=== PATIENT | female | born 1980 | race Caucasian/White ===

== ENCOUNTER 2016-08-06 08:35 | Emergency (ER) | payer SELFPAY ==
[~2016-08-06] VITALS: Ht 157.5 cm; Wt 50.0 kg
[2016-08-06 08:39] VITALS: Ht 157.5 cm; Wt 50.0 kg
[2016-08-06] MEDS ORDERED: KETOROLAC 30 MG INJ IM STA (09:20)
[2016-08-06] MEDS ORDERED: ONDANSETRON (ODT) 4 MG TAB ODT STA (09:20)
[2016-08-06 09:52] LABS: ADD SCAN DIFF NO
[2016-08-06 10:00] LABS: ADD UMIC YES; URINE BILIRUBIN (Dip) NEGATIVE (NEGATIVE); URINE BLOOD (Dip) 1+ (NEGATIVE); URINE COLOR LT. YELLOW (YELLOW); URINE GLUCOSE (Dip) >=1000 % (NEGATIVE); URINE KETONES (Dip) NEGATIVE (NEGATIVE); URINE LEUKOCYTE ESTERASE (Dip) NEGATIVE (NEGATIVE); URINE NITRITE (Dip) NEGATIVE (NEGATIVE); URINE TOTAL PROTEIN (Dip) NEGATIVE (NEGATIVE); URINE UROBILINOGEN (Dip) 0.2 E.U./dL (0.1-1.0)
[2016-08-06 10:09] LABS: BASOPHILS % 0.3 % (0.0-2.0); EOSINOPHILS # 0.1 10^3/ul (0.0-0.5); EOSINOPHILS % 1.7 % (0.0-7.0); HEMATOCRIT 37.4 % (37.0-47.0); HEMOGLOBIN 11.2 g/dl (12.0-16.0); LYMPHOCYTES # 2.6 10^3/ul (0.8-2.9); LYMPHOCYTES % 39.7 % (15.0-51.0); MEAN CORPUSCULAR HEMOGLOBIN 20.8 pg (29.0-33.0); MEAN CORPUSCULAR HGB CONC 29.9 g/dl (32.0-37.0); MEAN CORPUSCULAR VOLUME 69.5 fl (82.0-101.0); MEAN PLATELET VOLUME 10.4 fl (7.4-10.4); MONOCYTE # 0.5 10^3/ul (0.3-0.9); MONOCYTES % 7.7 % (0.0-11.0); NEUTROPHIL # 3.3 10^3/ul (1.6-7.5); NEUTROPHILS % 50.3 % (39.0-77.0); PLATELET COUNT 512 10^3/UL (140-415); RED BLOOD COUNT 5.38 10^6/ul (4.20-5.40); RED CELL DISTRIBUTION WIDTH 17.2 % (11.5-14.5); WHITE BLOOD COUNT 6.5 10^3/ul (4.8-10.8)
[2016-08-06 10:12] LABS: ALBUMIN 4.9 g/dl (3.3-4.9)
[2016-08-06 10:13] LABS: BACTERIA,URINE FEW; POTASSIUM 3.7 mmol/L (3.5-5.1)
[2016-08-06 10:15] LABS: ALBUMIN/GLOBULIN RATIO 1.13; BILIRUBIN,INDIRECT 0.4 mg/dl (0-1.1); BILIRUBIN,TOTAL 0.4 mg/dl (0.2-1.3); CALCIUM 9.8 mg/dl (8.4-10.2); CREATININE 0.4 mg/dl (0.44-1.00); TOTAL PROTEIN 9.2 g/dl (6.1-8.1)
[2016-08-06] MEDS ORDERED: IBUP-1542 PO (10:54)
[2016-08-06] MEDS ORDERED: CIPR500T4 PO (10:54)
[2016-08-06 11:12] VITALS: BP 120/70; PULSE 78; RESP 18; TEMP 98.1
--- NOTE | 2016-08-06 16:16 | ERD ---
ER Documentation Chief Complaint Date/Time DATE: 08/06/16 TIME: 16:12 Chief Complaint NECK PAIN WITH VOMITING SINCE YESTERDAY , NO TRAUMA HPI 36-year-old otherwise healthy woman presents with vomiting and generalized weakness 2 days with bilateral shoulder pain initially describes as neck although she points to the trapezius bilaterally, states pain occurred when she woke up yesterday and worse with movement of the head and neck. She denies fevers or chills, no chest pain or shortness of breath, no abdominal pain, no headache or blurry vision. Patient stated she has had increased urinary frequency and malodorous urine, but no vaginal discharge or bleeding. ROS All systems reviewed and are negative except as per history of present illness. Medications Home Meds Active Scripts Ibuprofen* (Ibuprofen*) 600 Mg Tablet, 600 MG PO Q8 for PAIN AND/OR INFLAMMATION , #30 TAB Prov:BREE PARISH MD 08/06/16 Ciprofloxacin Hcl* (Ciprofloxacin Hcl*) 500 Mg Tablet, 500 MG PO BID for 5 Days , TAB Prov:BREE PARISH MD 08/06/16 Allergies Allergies: Coded Allergies: Penicillins (Verified Allergy, Intermediate, NUMBNESS, 12/06/06) PMhx/Soc None History of Surgery: No Anesthesia Reaction: No Hx Neurological Disorder: No Hx Respiratory Disorders: No Hx Cardiac Disorders: No Hx Psychiatric Problems: No Hx Miscellaneous Medical Probl: No Hx Alcohol Use: No Hx Substance Use: No Hx Tobacco Use: No FmHx Family History: diabetes Physical Exam Vitals Vital Signs Date Time Temp Pulse Resp B/P Pulse Ox O2 Delivery O2 Flow Rate FiO2 08/06/16 11:12 98.1 78 18 120/70 100 Room Air 08/06/16 08:39 98.1 81 18 129/72 100 Physical Exam GENERAL: Well-developed, well-nourished, well-hydrated, in no apparent distress , looks nontoxic in appearance HEENT: Moist mucous membranes, pink conjunctiva, no cervical spine tenderness or step-off deformities, no goiter, no jaundice or icterus, extraocular movements intact without pain. No submandibular induration, and no pharyngeal erythema NEURO: Alert and oriented 3, cranial nerves II through XII intact bilaterally, pupils equal round reactive to light, no focal deficits or facial asymmetry, sensation intact distally Strength 5/5 in upper and lower extremities bilaterally CARDIAC: Regular rate and rhythm, no murmurs rubs or gallops LUNGS: Clear bilaterally no wheezing crackles or stridor ABDOMEN: Soft nontender, no guarding, no rigidity, no rebound, no psoas sign no obturator sign. Normoactive bowel sounds SKIN: Warm and dry to touch, no abrasions, contusions, or hematomas, no lacerations, no ecchymosis, no target lesions, and without ulcers EXTREMITIES: No clubbing cyanosis or edema, calves are bilaterally symmetrical, no Homans sign, no popliteal cord sign. Distal pulses equal and bilateral PSYCH: Normal affect without agitation or irritability Result Diagram: 08/06/16 0932 08/06/1632 Results 24 hrs Laboratory Tests Test 08/06/16 09:32 White Blood Count 6.510^3/ul Red Blood Count 5.3810^6/ul Hemoglobin 11.2g/dl Hematocrit 37.4% Mean Corpuscular Volume 69.5fl Mean Corpuscular Hemoglobin 20.8pg Mean Corpuscular Hemoglobin Concent 29.9g/dl Red Cell Distribution Width 17.2% Platelet Count 05222^3/UL Mean Platelet Volume 10.4fl Neutrophils % 50.3% Lymphocytes % 39.7% Monocytes % 7.7% Eosinophils % 1.7% Basophils % 0.3% Nucleated Red Blood Cells % 0.0/100WBC Neutrophils # 3.310^3/ul Lymphocytes # 2.610^3/ul Monocytes # 0.510^3/ul Eosinophils # 0.110^3/ul Basophils # 0.010^3/ul Nucleated Red Blood Cells # 0.010^3/ul Urine Color LT. YELLOW Urine Clarity CLEAR Urine pH 6.0 Urine Specific [place] 1.010 Urine Ketones NEGATIVE Urine Nitrite NEGATIVE Urine Bilirubin NEGATIVE Urine Urobilinogen 0.2 E.U./dL Urine Leukocyte Esterase NEGATIVE Urine Microscopic RBC 5-10/HPF Urine Microscopic WBC 2-5/HPF Urine Epithelial Cells MODERATE Urine Bacteria FEW Urine Hemoglobin 1+ Urine Glucose >=1000% Urine Total Protein NEGATIVE Sodium Level 139mmol/L Potassium Level 3.7mmol/L Chloride Level 98mmol/L Carbon Dioxide Level 26mmol/L Anion Gap 19 Blood Urea Nitrogen 9mg/dl Creatinine 0.40mg/dl Glucose Level 273mg/dl Calcium Level 9.8mg/dl Total Bilirubin 0.4mg/dl Direct Bilirubin 0.00mg/dl Indirect Bilirubin 0.4mg/dl Aspartate Amino Transf (AST/SGOT) 23IU/L Alanine Aminotransferase (ALT/SGPT) 36IU/L Alkaline Phosphatase 86IU/L Total Protein 9.2g/dl Albumin 4.9g/dl Globulin 4.30g/dl Albumin/Globulin Ratio 1.13 Lipase 171U/L Current Medications Medications (Trade) Dose Ordered Sig/Maye Route PRN Reason Start Time Stop Time Status Last Admin Dose Admin Ketorolac Tromethamine (Toradol) 30 mg ONCE STAT IM 08/06/16 09:20 08/06/16 09:22 DC 08/06/16 09:32 Ondansetron HCl (Zofran Odt) 4 mg ONCE STAT ODT 08/06/16 09:20 08/06/16 09:22 DC 08/06/16 09:31 Procedures/MDM I administered Toradol 30 mg intramuscular injection with improvement in her pain, she also received Zofran 4 mg ODT without episodes of vomiting while here. test was negative and urine analysis was concerning for early urinary tract infection. CBC and electrolytes were unremarkable, liver function tests are normal. Differential diagnoses considered, included but not limited to acute coronary syndrome, pulmonary embolism, aortic dissection, abdominal aortic aneurysm, sepsis, stroke, meningitis, encephalitis, pneumonia, appendicitis, cholecystitis , bowel obstruction, pyelonephritis, nephrolithiasis, cystitis, as well as metabolic, hematologic, and electrolyte abnormalities. As well as abscess, cellulitis, fractures, and dislocations. Patient feels much better at this time, and vital signs are normal, symptoms have improved. I did give strict instructions to return to the ED if symptoms continue or worsen, patient will otherwise follow-up with primary care physician. Patient understood instructions and agreed to plan. Departure Diagnosis: Primary Impression: Cystitis Condition: Good Patient Instructions: Headache, Tension, Bladder Infection, Female (Adult) BREE PARISH MD August 06, 2016 16:16
== END 2016-08-06 11:12 | disposition home or self-care (01) ==
LOC: FTE 08:35
DX: N30.90 Cystitis, unspecified without hematuria (principal)
CPT/HCPCS: 36415; 80053; 81001; 83690; 85025; 96372; 99284; J1885; 81003

== ENCOUNTER 2017-01-01 21:25 | Emergency (ER) | END 2017-01-02 01:15 | disposition home or self-care (01) | DX: M25.511 Pain in right shoulder (principal) | CPT/HCPCS: 73030; 96374; J1885; Z7502 ==

== ENCOUNTER 2018-08-10 12:45 | Emergency (ER) | payer MEDICAID ==
[~2018-08-10] VITALS: Wt 47.8 kg
[~2018-08-10 12:45] MED LIST: ACET500C5 PO; BEN25 PO; CIPR500T4 PO; FER325 PO; HYDR-4011 PO; IBUP-1542 PO; MECL12.574 PO; METO10TA92 PO; OMEP40CA6 PO; TRAM50TA2 PO
[2018-08-10 12:49] VITALS: BP 167/77; PULSE 90; RESP 18
[2018-08-10] MEDS ORDERED: BENZ-6 PO (13:48)
[2018-08-10] MEDS ORDERED: AZIT250T PO (13:49)
--- NOTE | 2018-08-10 13:52 | ERD ---
ER Documentation Chief Complaint Chief Complaint COUGH X 6 DAYS HPI Patient is a 38-year-old female with no past medical history presents the ER for concerns of cough x1 week. Patient states cough is dry in nature. Patient denies any fevers, chills, nausea, vomiting, chest pain, shortness of breath or LOC. Patient reports generalized body aches. Patient does state she has sick contacts. Patient states has been taking cough medication with minimal alleviation of symptoms.. No recent travel. ROS All systems reviewed and are negative except as per history of present illness. Medications Home Meds Active Scripts Azithromycin* (Zithromax*) 250 Mg Tablet, 250 MG PO .ZPACK DIRECTED, #6 TAB TAKE 500 MG (2 TABS) THE FIRST DAY THEN 250 MG (1 TAB) DAYS 2-5 Prov:EZE GREGORIO PA-C 08/10/18 Benzonatate* (Tessalon Perle*) 100 Mg Capsule, 100 MG PO Q8H PRN for COUGH, #30 CAP Prov:EZE GREGORIO PA-C 08/10/18 Omeprazole* (Omeprazole*) 40 Mg Capsule.dr, 40 MG PO DAILY, #30 CAP Prov:PASILALILIBETH KRAMER 04/25/18 Meclizine Hcl* (Antivert*) 12.5 Mg Tab, 25 MG PO Q6H PRN for DIZZINESS, #20 TAB Prov:PASILALILIBETH KRAMER 04/25/18 Ferrous Sulfate* (Ferrous Sulfate*) 325 Mg Tabec, 325 MG PO DAILY, #30 TAB Prov:LILIBETH KRUGER 04/25/18 Acetaminophen* (Tylophen*) 500 Mg Capsule, 1 CAP PO Q6H PRN for PAIN AND OR ELEVATED TEMP, #20 CAP Prov:PASILALILIBETH KRAMER 04/25/18 Diphenhydramine Hcl* (Benadryl*) 25 Mg Cap, 25 MG PO Q6 PRN for ITCHING/RASH, #30 TAB Prov:LILIBETH KRUGER 04/25/18 Metoclopramide* (Reglan*) 10 Mg Tablet, 10 MG PO Q6 PRN for NAUSEA AND/OR VOMITING, #20 TAB Prov:LILIBETH KRUGER 04/25/18 Ciprofloxacin Hcl* (Ciprofloxacin Hcl*) 500 Mg Tablet, 500 MG PO BID for 7 Days, TAB Prov:PASILABAN,KLAR F 04/25/18 Tramadol HCl (Tramadol HCl) 50 Mg Tablet, 50 MG PO Q4 PRN for PAIN, #20 TAB Prov:DEWAYNEMYESHA TerrazasHolger 01/02/17 Hydrocodone/Acetaminophen ([place] 5-325 Tablet) 1 Each Tablet, 1 EACH PO BID, #7 TAB Prov:AL SKINNER PA-C 11/12/16 Ciprofloxacin Hcl* (Ciprofloxacin Hcl*) 500 Mg Tablet, 500 MG PO BID for 10 Days, TAB Prov:AL SKINNER PA-C 11/12/16 Ibuprofen* (Ibuprofen*) 600 Mg Tablet, 600 MG PO Q8 for PAIN AND/OR INFLAMMATION, #30 TAB Prov:BREE PARISH MD 08/06/16 Ciprofloxacin Hcl* (Ciprofloxacin Hcl*) 500 Mg Tablet, 500 MG PO BID for 5 Days, TAB Prov:BREE PARISH MD 08/06/16 Allergies Allergies: Coded Allergies: Penicillins (Verified Allergy, Intermediate, NUMBNESS, 08/10/18) PMhx/Soc Medical and Surgical Hx: pt denies Medical Hx History of Surgery: Yes (c section) Anesthesia Reaction: No Hx Neurological Disorder: No Hx Respiratory Disorders: No Hx Cardiac Disorders: No Hx Psychiatric Problems: No Hx Miscellaneous Medical Probl: No Hx Alcohol Use: No Hx Substance Use: No Hx Tobacco Use: No Smoking Status: Never smoker FmHx Family History: No diabetes Physical Exam Vitals Vital Signs Date Temp Pulse Resp B/P (MAP) Pulse Ox O2 O2 Flow FiO2 Time Delivery Rate 08/10/18 98.0 90 18 167/77 99 12:49 (107) Physical Exam GENERAL: Well-developed, well-nourished female. Appears in no acute distress. HEAD: Normocephalic, atraumatic. No deformities or ecchymosis. EYE: Pupils equal, round, and reactive to light. EOMs intact. No conjunctival erythema. No eye discharge. ENT: External ear without any masses or tenderness. Auditory canals clear bilaterally. TM visualized bilaterally, non-erythematous, non-bulging. Nasal mucosa pink with no discharge. Oropharynx is pink without any tonsillar erythema or exudates. No uvula deviation. No kissing tonsils. NECK: Supple. No meningismus. Normal ROM of the neck. LUNG: Clear to auscultation bilaterally. No rhonchi, wheezing, rales or coarse breath sounds. HEART: Regular rate and rhythm. No murmurs, rubs or gallops. EXTREMITIES: Equal pulses bilaterally. No peripheral clubbing, cyanosis or edema. No unilateral leg swelling. NEUROLOGIC: Alert and oriented to person, place and time. Moving all four e xtremities. 5/5 strength in all extremities. Normal speech. Steady gait. SKIN: Normal color. Warm and dry. No rashes or lesions. Procedures/MDM MEDICAL DECISION MAKING: This is a 38-year-old female presents the ER for concerns of cough x1 week. Patient was afebrile. Patient was not hypoxic. Patient denied recent travel. Cardiac exam was normal. Lung exam was normal. Given these findings, the patients presentation is most consistent with acute bronchitis. Low suspicion for acute coronary syndrome, pneumothorax, pneumonia, TB, influenza, pertussis, GERD, allergic rhinitis. Patient was nontoxic, [id number] prior to discharge. PRESCRIPTIONS: Azithromycin, Tessalon Perles DISCHARGE: At this time, patient is stable for discharge and outpatient management. I have instructed the patient to follow-up with his/her primary care physician in 1-2 days. If symptoms persist, patient may need to see a specialist for further examinations and testing. I have instructed the patient to promptly return to the ER at any time for any new or worsening symptoms including increased increased pain, fever, nausea, vomiting, numbness, shortness of breath, weakness, ongoing wheezing, retractions or LOC. The patient and/or family expressed understanding of and agreement with this plan. All questions were answered. Home care instructions were provided. Patients blood pressure was elevated (>120/80) but appears stable without evidence of hypertensive emergency, hypertensive urgency or end-organ failure. I had discussion with the patient about the risks of hypertension. I have advised the patient to follow up with his/her primary care physician for outpatient monitoring and treatment for hypertension in 2-3 days. I have instructed the patient to return to the ER for any new or worsening symptoms including chest pain, shortness of breath, headache, blurred vision, confusion, nausea, vomiting or LOC. Disclaimer: Inadvertent spelling and grammatical errors are likely due to EHR/dictation software use and do not reflect on the overall quality of patient care. Also, please note that the electronic time recorded on this note does not necessarily reflect the actual time of the patient encounter. Departure Diagnosis: Primary Impression: Bronchitis Condition: Fair Patient Instructions: Bronchitis, Antiobiotic Treatment (Adult) Referrals: [facility] YOU HAVE RECEIVED A MEDICAL SCREENING EXAM AND THE RESULTS INDICATE THAT YOU DO NOT HAVE A CONDITION THAT REQUIRES URGENT TREATMENT IN THE EMERGENCY DEPARTMENT. FURTHER EVALUATION AND TREATMENT OF YOUR CONDITION CAN WAIT UNTIL YOU ARE SEEN IN YOUR DOCTORS OFFICE WITHIN THE NEXT 1-2 DAYS. IT IS YOUR RESPONSIBILITY TO MAKE AN APPOINTMENT FOR FOLOW-UP CARE. IF YOU HAVE A PRIMARY DOCTOR --you should call your primary doctor and schedule an appointment IF YOU DO NOT HAVE A PRIMARY DOCTOR YOU CAN CALL OUR PHYSICIAN REFERRAL HOTLINE AT IF YOU CAN NOT AFFORD TO SEE A PHYSICIAN YOU CAN CHOSE FROM THE FOLLOWING [facility] [address] [facility] [address] [facility] [address] [facility] [address] [facility] [address] [facility] [facility]. [address] [facility] [facility] YOU HAVE RECEIVED A MEDICAL SCREENING EXAM AND THE RESULTS INDICATE THAT YOU DO NOT HAVE A CONDITION THAT REQUIRES URGENT TREATMENT IN THE EMERGENCY DEPARTMENT. FURTHER EVALUATION AND TREATMENT OF YOUR CONDITION CAN WAIT UNTIL YOU ARE SEEN IN YOUR DOCTORS OFFICE WITHIN THE NEXT 1-2 DAYS. IT IS YOUR RESPONSIBILITY TO MAKE AN APPOINTMENT FOR FOLOW-UP CARE. IF YOU HAVE A PRIMARY DOCTOR --you should call your primary doctor and schedule and appointment IF YOU DO NOT HAVE A PRIMARY DOCTOR YOU CAN CALL OUR PHYSICIAN REFERRAL HOTLINE AT . IF YOU CAN NOT AFFORD TO SEE A PHYSICIAN YOU CAN CHOSE FROM THE FOLLOWING [facility] INSTITUTIONS: [facility] [address] [place] [address] [facility] [address] [place] [address] [facility] [address] [address] [facility] URGENT CARE/SPECIALTIES Additional Instructions: Llame al doctor MAANA y yoshi enmanuel CAMILLE PARA DENTRO DE 1-2 AKHTAR.Dgale a la secretaria que nosotros le instruimos hacer esta camille.Avise o llame si reagan condicin se empeora antes de la camille. Regresa aqui si peor o no mejor. EZE GREGORIO PA-C August 10, 2018 13:52
== END 2018-08-10 14:14 | disposition home or self-care (01) ==
LOC: FTE 12:45
DX: J40 Bronchitis, not specified as acute or chronic (principal)
CPT/HCPCS: 99283

== ENCOUNTER 2018-09-28 12:17 | Emergency (ER) | payer MEDICAID ==
[~2018-09-28] VITALS: Ht 152.4 cm; Wt 50.0 kg
[~2018-09-28 12:17] MED LIST changes: +AZIT250T PO; +BENZ-6 PO
[2018-09-28 12:19] VITALS: BP 148/78; PULSE 89; RESP 18; Ht 152.4 cm; Wt 50.0 kg
[2018-09-28] MEDS ORDERED: HYDR-845 PO (13:18)
[2018-09-28] MEDS ORDERED: DEC4 PO (13:18)
[2018-09-28] MEDS ORDERED: EPIN0.3P4 INJ (13:19)
--- NOTE | 2018-09-28 13:24 | ERD ---
ER Documentation Chief Complaint Chief Complaint SORE THROAT X 2 DAYS HPI 38-year-old female who presents to the emergency room with a family member interpreting. The patient describes 2 to 3 days of a sore throat. She describes some itching around her perioral region. She denies any tongue swelling, drooling, change in her voice. Patient does describe a possible globus sensation but denies any difficulty breathing or wheezing. No exposures to new drugs or medications. The patient does describe mild itching to her upper extremities that just started over the past 24 to 48 hours. She denies any cough, no runny nose. No fever. ROS All systems reviewed and are negative except as per history of present illness. Medications Home Meds Active Scripts Epinephrine (Epipen 2-Jorge L) 0.3 Mg/0.3 Ml Pen.injctr, 1 EA INJ ONCE PRN for ALLERGIC REACTION, #1 EA Prov:BRANDAN ARCHER MD 09/28/18 Hydroxyzine Hcl* (Atarax*) 50 Mg Tab, 50 MG PO Q8H PRN for ITCHING, #20 TAB Prov:BRANDAN ARCHER MD 09/28/18 Dexamethasone* (Decadron*) 4 Mg Tab, 8 MG PO ONCE for 1 Day, TAB Take tomorrow (09/29/18) around lunch time. Prov:BRANDAN ARCHER MD 09/28/18 Azithromycin* (Zithromax*) 250 Mg Tablet, 250 MG PO .ZPACK DIRECTED, #6 TAB TAKE 500 MG (2 TABS) THE FIRST DAY THEN 250 MG (1 TAB) DAYS 2-5 Prov:EZE GREGORIO PA-C 08/10/18 Benzonatate* (Tessalon Perle*) 100 Mg Capsule, 100 MG PO Q8H PRN for COUGH, #30 CAP Prov:EZE GREGORIO PA-C 08/10/18 Omeprazole* (Omeprazole*) 40 Mg Capsule.dr, 40 MG PO DAILY, #30 CAP Prov:LILIBETH KRUGER F 04/25/18 Meclizine Hcl* (Antivert*) 12.5 Mg Tab, 25 MG PO Q6H PRN for DIZZINESS, #20 TAB Prov:LILIBETH KRUGER F 04/25/18 Ferrous Sulfate* (Ferrous Sulfate*) 325 Mg Tabec, 325 MG PO DAILY, #30 TAB Prov:LILIBETH KRUGER 04/25/18 Acetaminophen* (Tylophen*) 500 Mg Capsule, 1 CAP PO Q6H PRN for PAIN AND OR ELEVATED TEMP, #20 CAP Prov:DAWNILALILIBETH KRAMER 04/25/18 Diphenhydramine Hcl* (Benadryl*) 25 Mg Cap, 25 MG PO Q6 PRN for ITCHING/RASH, #30 TAB Prov:LILIBETH KRUGER 04/25/18 Metoclopramide* (Reglan*) 10 Mg Tablet, 10 MG PO Q6 PRN for NAUSEA AND/OR VOMITING, #20 TAB Prov:LILIBETH KRUGER 04/25/18 Ciprofloxacin Hcl* (Ciprofloxacin Hcl*) 500 Mg Tablet, 500 MG PO BID for 7 Days, TAB Prov:LILIBETH KURGER 04/25/18 Tramadol HCl (Tramadol HCl) 50 Mg Tablet, 50 MG PO Q4 PRN for PAIN, #20 TAB Prov:MYESHA BUCHANAN 01/02/17 Hydrocodone/Acetaminophen (Mcdonough 5-325 Tablet) 1 Each Tablet, 1 EACH PO BID, #7 TAB Prov:AL SKINNER PA-C 11/12/16 Ciprofloxacin Hcl* (Ciprofloxacin Hcl*) 500 Mg Tablet, 500 MG PO BID for 10 Days, TAB Prov:AL SKINNER PA-C 11/12/16 Ibuprofen* (Ibuprofen*) 600 Mg Tablet, 600 MG PO Q8 for PAIN AND/OR INFLAMMATION, #30 TAB Prov:BREE PARISH MD 08/06/16 Ciprofloxacin Hcl* (Ciprofloxacin Hcl*) 500 Mg Tablet, 500 MG PO BID for 5 Days, TAB Prov:BREE PARISH MD 08/06/16 Allergies Allergies: Coded Allergies: Penicillins (Verified Allergy, Intermediate, NUMBNESS, 08/10/18) PMhx/Soc History of Surgery: Yes (c section) Anesthesia Reaction: No Hx Neurological Disorder: No Hx Respiratory Disorders: No Hx Cardiac Disorders: No Hx Psychiatric Problems: No Hx Miscellaneous Medical Probl: No Hx Alcohol Use: No Hx Substance Use: No Hx Tobacco Use: No FmHx Family History: No diabetes Physical Exam Vitals Vital Signs Date Temp Pulse Resp B/P (MAP) Pulse Ox O2 O2 Flow FiO2 Time Delivery Rate 09/28/18 98.5 89 18 148/78 99 12:19 (101) Physical Exam General: Well developed, well nourished, no acute distress Head: Normocephalic, atraumatic. Eyes: Pupils equally reactive, EOM intact ENT:, Posterior pharynx with uvula midline, no edema, no tongue swelling, tolerating secretions, soft submental space. No stridor. Normal phonation. Neck: Supple, no lymphadenopathy Respiratory: Lungs clear bilaterally, no distress Cardiovascular: RRR, no murmurs, rubs, or gallops Abdominal: Soft, non-tender, non-distended, no peritoneal signs : Deferred MSK: No edema, no unilateral swelling, 5/5 strength Neurologic: Alert and oriented, moving all extremities, normal speech, no focal weakness, no cerebellar signs Skin: No rash, no urticaria Psych: Normal mood Results 24 hrs Current Medications Medications Dose Sig/Maye Start Time Status Last (Trade) Ordered Route PRN Stop Time Admin Dose Reason Admin 10 mg ONCE ONCE 09/28/18 Dexamethasone PO 13:30 (Decadron) 09/28/18 13:31 50 mg ONCE ONCE 09/28/18 Diphenhydrami PO 13:30 ne HCl 09/28/18 13:31 (Benadryl) Famotidine 20 mg ONCE ONCE 09/28/18 (Pepcid) PO 13:30 09/28/18 13:31 Procedures/MDM Patient is describing a sore throat. She also describes some itching and pruritus type symptoms. The patient exhibits no clinical signs or symptoms or obvious findings concerning for acute anaphylaxis. The patient has no lip swelling tongue swelling or uvular swelling. She is tolerating secretions and able to tolerate oral intake here in the emergency room setting. She has no fevers or chills. The patient has a supple neck. I do not believe this is consistent with infectious process or deep space infection. Consider possible anxiety reaction. Consider possible mild allergic reaction but again her clinical exam does not fit with a presentation of anaphylaxis or airway involvement. Consider viral process as well. Given the patient's predominant pleuritic component I do believe she would benefit from antihistamines and a short course of steroids. Return precautions were discussed and understood. The patient tolerated swallowing the medication without difficulty. For this reason I do not believe prolonged observation is necessary in the emergency room setting. Patient is understanding of return precautions. Patient is safe for discharge. The patient does not have an identifiable emergent medical condition that warrants inpatient hospitalization at this time. The patient is deemed safe for discharge with outpatient follow-up. We discussed follow up with the patient's primary care doctor within 24 to 48 hours as needed. We also discussed return to the emergency room for worsening symptoms or worsening condition. Outpatient referral: None required Discharge Medications: Atarax, Decadron, EpiPen Departure Diagnosis: Primary Impression: Sore throat Additional Impression: Pruritus Condition: Stable Patient Instructions: Allergic Reaction, Other (General) [facility]errals[facility] Usted se cotton hecho un examen mdico de control que le indica que no est en enmanuel condicin que requiera tratamiento urgente en el Departamento de Emergencia. Un estudio ms profundo y el tratamiento de reagan condicin pueden esperar sin ningn riesgo hasta que usted sea atendida/o en el consultorio de reagan mdico o enmanuel clnica. Es responsabilidad suya arreglar enmanuel leonard para el seguimiento del denny. MANEJO DE CONDICIONES NO URGENTES EN EL FUTURO 1) Si usted tiene un mdico de atencin primaria: Usted debera llamar a reagan mdico de atencin primaria antes de venir al departamento de emergencia. Despus de las horas de consultorio, reagan doctor o reagan asociado/a est disponible por telfono. El mdico o enfermero de kenneth en el servicio telefnico puede asesorarle por alo medio para atender el problema, o denny contrario se puede programar enmanuel leonard. 2) Si usted no tiene un mdico de atencin primaria: Llame al mdico o clnica de referencia que aparece abajo ale las horas de consultorio para hacer enmanuel leonard para que le vean. CLINICAS: [facility] [phone] [facility] [phone] [facility] [phone] [place] [id number] [phone] [facility] [phone] [address] [facility] [phone] [address] [facility] () Usted se octton hecho un examen mdico de control que le indica que no est en enmanuel condicin que requiera tratamiento urgente en el Departamento de Emergencia. Un estudio ms profundo y el tratamiento de reagan condicin pueden esperar sin ningn riesgo hasta que usted sea atendida/o en el consultorio de reagan mdico o enmanuel clnica. Es responsabilidad suya arreglar enmanuel leonard para el seguimiento del denny. MANEJO DE CONDICIONES NO URGENTES EN EL FUTURO 1) Si usted tiene un mdico de atencin primaria: Usted debera llamar a reagan mdico de atencin primaria antes de venir al departamento de emergencia. Despus de las horas de consultorio, reagan doctor o reagan asociado/a est disponible por telfono. El mdico o enfermero de kenneth en el servicio telefnico puede asesorarle por alo medio para atender el problema, o denny contrario se puede programar enmanuel leonard. 2) Si usted no tiene un mdico de atencin primaria: Llame al mdico o condado institucions de referencia que aparece abajo ale las horas de consultorio para hacer enmanuel leonard para que le vean. SI USTED NO PUEDE PAGAR PARA DAPHNE UN MEDICO puede ir a: [facility] [address] [place] [address] [facility] [address] [place] [address] [facility] [address] [place] [address] [facility] [address] [place], [place] [id number] Additional Instructions: Call your primary care doctor TOMORROW for an appointment during the next 1 WEEK.Tell the dental secretary that you were referred from this facility.See the doctor sooner or return here if your condition worsens before your appointment time. BRANDAN ARCHER MD Sep 28, 2018 13:24
[2018-09-28] MEDS ORDERED: DIPHENHYDRAMINE 50 MG CAP PO ONE (13:30)
[2018-09-28] MEDS ORDERED: FAMOTIDINE 20 MG TAB PO ONE (13:30)
[2018-09-28] MEDS ORDERED: DEXAMETHASONE 4 MG TAB PO ONE (13:30)
== END 2018-09-28 13:38 | disposition home or self-care (01) ==
LOC: FTE 12:17
DX: J02.9 Acute pharyngitis, unspecified (principal); L29.9 Pruritus, unspecified
CPT/HCPCS: Z7502; Z7610; 99283